=== PATIENT | male | born 1940 | race Caucasian/White ===

== ENCOUNTER → 2017-04-13 | Outpatient (CLI) | payer OTHER ==
[~2017-04-13] MED LIST: DABI150C PO; LOSA50TA6 PO; METO100T44 PO; OXYC-57 PO; PRAV80TA2 PO
--- NOTE | 2017-04-13 09:08 | DIAGNOSTIC IMAGING REPORT ---
KUB HISTORY: N20.0 [id number] COMPARISON: KUB 03/23/2016. FINDINGS: The bowel gas pattern is unremarkable. There are no dilated loops of small bowel to suggest an obstruction. No right renal calculi. Possible 5 mm stone within the upper pole the left kidney. No ureteral calculi. Calcifications in the deep pelvis likely represent phleboliths. These are not significantly changed. Multiple mastoid splenic granulomas. The renal shadows are mostly obscured by overlying bowel gas. No pneumoperitoneum or pneumatosis. IMPRESSION: The renal shadows are mostly obscured by overlying bowel gas. Possible 5 mm stone within the upper pole the left kidney Electronically signed by: Noah Huerta M.D. 04/13/2017 9:07 AM Dictated Date/Time: 04/13/2017 9:05 AM
[2017-04-13 09:47] LABS: ALT/SGPT 35 U/L (12-78); AST/SGOT 26 U/L (15-37); BLOOD UREA NITROGEN 17 mg/dl (7-18); BUN/CREATININE RATIO 11.9 (10-20); CARBON DIOXIDE 26 mmol/L (21-32); CHLORIDE 107 mmol/L (98-107); CHOLESTEROL 157 mg/dl (0-200); GLUCOSE 109 mg/dl (70-99); POTASSIUM 4.4 mmol/L (3.5-5.1); SODIUM 141 mmol/L (136-145)
[2017-04-13 09:52] LABS: ESTIMATED AVERAGE GLUCOSE 108 mg/dl; HA1C FLAG Normal (Normal)
[2017-04-13 09:57] LABS: CHOLESTEROL/HDL RATIO 2.5; HDL CHOLESTEROL 63 mg/dl; LDL CHOLESTEROL CALCULATED 76 mg/dl; TRIGLYCERIDES 91 mg/dl (0-150); VERY LOW DENSITY LIPOPROT CALC 18 mg/dl
[2017-04-13 13:21] LABS: CALCIUM 9.6 mg/dl (8.5-10.1)
--- NOTE | 2017-04-21 13:01 | CODING QUERY MEDICAL NECESSITY ---
CQSUPPORTING DIAGNOSIS NEEDED A supporting diagnosis is required for the test/procedure performed on this patient in order for us to be reimbursed by the patient's insurance. Please provide a supporting diagnosis for the following test/procedure listed below next to the test name along with your signature. *If there is no additional diagnosis for this patient that would support the following test/procedure please document that below next to the test/procedure. Test(s)/Procedure(s) that require a supporting diagnosis: DOS 04/13/17 PROSTATE SPECIFIC TEST Provider Signature: Date: Thank you Sarah Molina [employer] Once completed, please kindly fax back to [phone] For questions please call [phone]
--- NOTE | 2017-04-21 13:05 | CODING QUERY MEDICAL NECESSITY ---
CQSUPPORTING DIAGNOSIS NEEDED A supporting diagnosis is required for the test/procedure performed on this patient in order for us to be reimbursed by the patient's insurance. Please provide a supporting diagnosis for the following test/procedure listed below next to the test name along with your signature. *If there is no additional diagnosis for this patient that would support the following test/procedure please document that below next to the test/procedure. Test(s)/Procedure(s) that require a supporting diagnosis: DOS 04/13/17 GLYCATED HEMOGLOBIN TEST (PRE-DIABESTES DIAGNOSIS DOES NOT COVER) Provider Signature: Date: Thank you Sarah Molina [employer] Once completed, please kindly fax back to [phone] For questions please call [phone]
== END | disposition home or self-care (01) ==
LOC: C.LAB1850 08:02
PROVIDERS: ATTEND Urology
DX: Z00.00 Encounter for general adult medical examination without abnormal findings (principal); N20.0 Calculus of kidney; E78.5 Hyperlipidemia, unspecified; I10 Essential (primary) hypertension; I25.10 Atherosclerotic heart disease of native coronary artery without angina pectoris; R73.03 Prediabetes; N40.0 Benign prostatic hyperplasia without lower urinary tract symptoms; R73.9 Hyperglycemia, unspecified

== ENCOUNTER → 2017-11-18 | Outpatient (CLI) | payer OTHER ==
[2017-11-18 10:24] LABS: ALT/SGPT 32 U/L (12-78); AST/SGOT 25 U/L (15-37); BLOOD UREA NITROGEN 20 mg/dl (7-18); CALCIUM 9.2 mg/dl (8.5-10.1); CARBON DIOXIDE 26 mmol/L (21-32); CHOLESTEROL 125 mg/dl (0-200); CREATININE 1.23 mg/dl (0.60-1.40); GLUCOSE 105 mg/dl (70-99); POTASSIUM 4.2 mmol/L (3.5-5.1); SODIUM 139 mmol/L (136-145)
[2017-11-18 10:34] LABS: LDL CHOLESTEROL CALCULATED 58 mg/dl
[2017-11-18 10:51] LABS: HEMOGLOBIN A1C 5.3 % (4.5-5.6)
== END | disposition home or self-care (01) ==
LOC: C.LAB1850 07:50
PROVIDERS: ATTEND Internal Medicine
DX: E78.00 Pure hypercholesterolemia, unspecified (principal); R73.9 Hyperglycemia, unspecified; I48.0 Paroxysmal atrial fibrillation; R73.03 Prediabetes; N40.0 Benign prostatic hyperplasia without lower urinary tract symptoms

== ENCOUNTER → 2017-12-13 | Outpatient (CLI) | payer OTHER ==
--- NOTE | 2017-12-13 16:18 | DIAGNOSTIC IMAGING REPORT ---
KUB HISTORY: NEPHROLITHIASIS COMPARISON: KUB 04/13/2017. FINDINGS: The bowel gas pattern is unremarkable. There are no dilated loops of small bowel to suggest an obstruction. Multiple splenic calcified granulomas are again noted. Overlying bowel result in difficult evaluation of the kidneys. There appears to be a punctate stone within the interpolar region of the right kidney. There may be a few punctate stones within the lower pole the left kidney. No ureteral calculi identified. Multiple pelvic calcifications consistent with phleboliths. No bladder calculi. No pneumoperitoneum or pneumatosis. IMPRESSION: Difficult evaluation of the kidneys due to overlying bowel. Probable punctate bilateral renal calculi. No ureteral calculi. Electronically signed by: Noah Huerta M.D. 12/13/2017 4:17 PM Dictated Date/Time: 12/13/2017 4:09 PM
== END | disposition home or self-care (01) ==
LOC: C.RAD1850 16:00
PROVIDERS: ATTEND Internal Medicine
DX: N20.0 Calculus of kidney (principal)

== ENCOUNTER → 2018-05-10 | Outpatient (CLI) | payer OTHER ==
[2018-05-10 09:46] LABS: HEMOGLOBIN A1C 5.4 % (4.5-5.6)
[2018-05-10 10:07] LABS: ALT/SGPT 31 U/L (12-78); AST/SGOT 22 U/L (15-37); BLOOD UREA NITROGEN 18 mg/dl (7-18); CALCIUM 8.7 mg/dl (8.5-10.1); CARBON DIOXIDE 26 mmol/L (21-32); CHOLESTEROL 112 mg/dl (0-200); CREATININE 1.26 mg/dl (0.60-1.40); GLUCOSE 101 mg/dl (70-99); LDL CHOLESTEROL CALCULATED 44 mg/dl; POTASSIUM 4.3 mmol/L (3.5-5.1); SODIUM 140 mmol/L (136-145)
== END | disposition home or self-care (01) ==
LOC: C.LAB1850 08:10
PROVIDERS: ATTEND Internal Medicine
DX: I48.91 Unspecified atrial fibrillation (principal); E78.00 Pure hypercholesterolemia, unspecified; R73.9 Hyperglycemia, unspecified

== ENCOUNTER 2025-08-26 16:04 | Observation (INO) ==
--- NOTE | 2025-08-26 16:24 | Emergency Department Note ---
Impression & Plan Frequent falls, Generalized weakness, Acute dehydration, Acidosis, lactic, Acute prostatitis, Cholelithiasis ED Provider Note NAME: RADHA NIEVES Jr AGE: 85 SEX: M : 1940 ARRIVES VIA: Walk-In INFORMANT: Patient, family ED PROVIDER(S): Eduardo Crowell DO CHIEF COMPLAINT: falls, LUTS HPI: This is an 85-year-old male with the PMHx of hypertension, hyperlipidemia, atherosclerotic cardiovascular disease, chronic anticoagulation with apixaban, CAD s/p CABG, JEFFREY, and BPH presenting to [facility] for further evaluation of falls. Patient is accompanied by his and daughter who provide additional history. They are reporting that the patient has been weak over the past few days. Has had issues of urinary frequency as well as incontinence. I think he has intermittent urinary retention. Possible UTI. He has fallen multiple times onto his hands and knees. He has no pain. He never struck his head or loss consciousness. He reports increased weakness and fatigue. They deny fever or chills. No cough or congestion. Denies chest pain or palpitations. No shortness of breath. They deny abdominal pain, nausea and vomiting. No urinary complaints. No recent changes in bowel movements. Patient denies recent changes in medications or OTC supplements. Patient offers no other complaints, today. ADDITIONAL HISTORY OBTAINED: Per HPI Chronic Medical/Social Conditions Affecting Care: Per HPI PAST MEDICAL HISTORY: See Below PAST SURGICAL HISTORY: See Below FAMILY HISTORY: See Below SOCIAL HISTORY: See Below HOME MEDICATIONS: See Below ALLERGIES: See Below VITALS: See Below PHYSICAL EXAMINATION: GENERAL: Sitting up in bed, alert, well appearing, well nourished, no distress, non-toxic EYE EXAM: normal conjunctiva. PERRL and EOM's grossly intact. OROPHARYNX: no exudate, no erythema, lips, buccal mucosa, and tongue normal and mucous membranes are moist NECK: supple, no nuchal rigidity, no adenopathy, non-tender LUNGS: Clear to auscultation. Normal chest wall mechanics HEART: no murmurs, regular rate, regular rhythm ABDOMEN: abdomen soft, non-tender, no masses, no rebound or guarding. BACK: Back is symmetrical on inspection and there is no deformity, no midline tenderness, no CVA tenderness. SKIN: no rashes and no bruising UPPER EXTREMITIES: upper extremities are grossly normal. LOWER EXTREMITIES: No pitting edema. NEURO EXAM: Normal sensorium, GCS 15, normal speech, no gross weakness of arms, no gross weakness of legs. MEDICAL DECISION MAKING: Differential diagnoses includes but not limited to ICH, skull fracture, appendicitis, bowel obstruction, diverticulitis, malignancy, nephrolithiasis, gastroenteritis, ACS, PNA, pancreatitis, hepatobiliary disease, prostatitis, UTI, electrolyte derangements, dehydration, functional decline In summary, this is an 85 year old male who presented with falls. Differential as above. Nursing notes and pertinent past medical records reviewed. Vital signs reviewed and the patient is afebrile and HDS. History and presentation revealed frequent falls on the hands and knees over the last few days in the setting of weakness and urinary complaints. Patient never struck his head but he is anticoagulated raising risk for intracranial hemorrhage. Physical examination revealed no evidence of trauma. As a result of my initial evaluation, there is never any evidence of trauma on physical examination. He never struck his head. He is anticoagulated and would obtain a CT head to ensure no intracranial hemorrhage. Patient's symptoms are mostly urinary. Suspect he could have a complicated UTI leading to weakness and increased falls. Safety will be the biggest concern for this patient as he is anticoagulated. IV access was established and the patient was placed on CCRM. Therapeutics ordered include IVFR. The patient is concerned about possible kidney stone. He states this feels similar. He has never had pain with kidney stones in the past. Will obtain a CT dry scan for further evaluation. Diagnostics interpreted by me include EKG and cardiac monitoring as listed below: -Cardiac Monitoring: An order was placed for continuous cardiac monitoring. The monitor shows a rate of 60-90s with regular rhythm. -ECG: Ventricular paced rhythm at [address] segment changes to suggest STEMI. Intervals are within normal limits otherwise. Patient completed laboratory studies and imaging. I-STAT chemistries independently interpreted by me reveal mild hyponatremia but otherwise unremarkable. CXR independently interpreted by me reveals no evidence of focal consolidation to suggest pna. No large pneumothorax or pleural effusion. No obvious displaced rib fracture. Sternotomy wires in place with PPM. CTH independently interpreted by me reveals no evidence of ICH. No significant hydrocephalus. No major skull fractures. CTH does not demonstrate findings to suggest an etiology of the patient's symptoms or presentation, today. Results independently interpreted by me are minimal leukocytosis and anemia. I minimal hyponatremia could be related to hyperglycemia. Increased BUN to creatinine ratio likely from mild dehydration. LFTs are normal. Urinalysis shows leukocyte esterase and pyuria. Do feel this is abnormal for a male patient. There is potential for complicated UTI but feel this could be more related to prostatitis. He has prostatomegaly on CT scan but otherwise no acute intra- abdominal or pelvic pathology. Some cholelithiasis but do not believe he is symptomatic at this time. Will continue IV fluid resuscitation. Patient was also given a dose of IV ciprofloxacin. I do feel given safety concerns as well as possibility of complicated UTI versus prostatitis at the patient should be admitted for observation. Ultimately, the decision was made to admit the patient for ambulatory dysfunction and weakness in the setting of complicated UTI vs prostatitis. I discussed the case with the hospitalist service via telephone/TigerText and they are agreeable to admit the patient to their services. Based on the above, including the patient's age, coexisting illnesses, labs, imaging, and exam findings the decision to treat as an inpatient. I discussed the patient with the hospitalist team who recommended admission to their services. They received the medications, treatments, interventions indicated above and their condition remained stable. I discussed my findings with the patient and their family and they understand and agree with the treatment plan. All patient / family questions were answered to their satisfaction. Consults/Care Managements Discussions: Per MDM ER treatment provided: See above Procedures:none Critical Care: None The chart was completed utilizing [employer] Speech voice recognition software. Grammatical errors, random word insertions, pronoun errors, and incomplete sentences are an occasional consequence of this system due to software limitations, ambient noise, and hardware issues. Any formal questions or concerns about the content, text, or information contained within the body of this dictation should be directly addressed to the physician for clarification. Past Med/Surg History Problem List (Updated 08/28/25 @ 12:40 by Eduardo Crowell DO) Cholelithiasis (Acute) Acute prostatitis (Acute) Acidosis, lactic (Acute) Acute dehydration (Acute) Generalized weakness (Acute) Frequent falls (Acute) Prostatitis Falls Fecal incontinence Chronic diarrhea BPH with obstruction/lower urinary tract symptoms History of use of hearing aid in both ears Oticon More 2R disp 05/2023 Bilateral tinnitus Hx TIA/stroke w/o resid Presence of cardiac pacemaker Vitamin D deficiency Seizure-like activity Word finding difficulty Sensorineural hearing loss (SNHL) of both ears Pulmonary nodule (Acute 10/14/15) Allergic rhinitis due to dust (Acute) Arteriosclerotic cardiovascular disease (Acute) Obstructive sleep apnea (Acute) On anticoagulant therapy (Acute) Eliquis Pre-diabetes (Acute) Right bundle branch block (Acute) SNHL (sensorineural hearing loss) Ureterolithiasis (Acute) Obstructive uropathy (Acute) HTN (hypertension) (Chronic) Medical History (Updated 08/28/25 @ 12:40 by Eduardo Crowell DO) Pre-diabetes denies History of colon polyps Hypothyroid History of kidney stones Pulmonary nodule denies HTN (hypertension) Word finding problem hx multiple episodes, most recent 2023 - eval at [facility]. Never had stroke or mini stroke per pt. History of cardioversion multiple prior to pacemaker placement Hyperlipidemia Cardiac pacemaker Dual Chamber pacemaker, VVIR mode d/t chronic Afib. Last check May 2025 - Dr. Clancy office. BPH (benign prostatic hyperplasia) denies Atrial fibrillation (2014) Continuous Afib since 2014 Sick sinus syndrome (04/12/14) "not familiar" Surgical History History of urologic surgery hx kidney stone History of colonoscopy History of left cataract surgery History of right cataract surgery History of cardiac cath (2002) failed stress test, found 5 blockages...CABG. Anais. History of permanent cardiac pacemaker placement original placement approx 2012, replaced in 2023 - [employer]. Hx of CABG (2002) Anais. Family History Mother Congenital heart disease Coronary heart disease Hypertension Lung cancer Breast cancer Father Coronary heart disease Kidney stones Hypertension Lung cancer Pure hypercholesterolemia Myocardial infarction Aunt Breast cancer Denies family history of Colon cancer Ovarian cancer Prostate cancer Social History Smoking Status: Never smoker Second Hand Exposure: No; Do You Dip or Chew Tobacco: No; Hx Alcohol Use: Yes Alcohol type: wine Alcohol Intake Frequency Comment: 4-5 times a week Hx Substance Use: No Preferred Language: Macedonian Communication Ability: Effective Visual Impairment: No Limitations Hearing Ability: Normal Craft Manager Required: No Beliefs That Will Affect Care: None marital status: Current Living Situation: Spouse current occupational status: retired How many Children do You have: 3 Feels Safe at Home: Yes Childhood Exposure to Second-Hand Smoke: Yes Diet Comment: low fat diet Dental Care, Regularly: Yes Physical Activity Frequency: 3-4 Times per Week Seatbelt Use: always Sunscreen Use: Yes Assistive Devices: Cane and Walker Allergies Allergies Allergy/AdvReac Type Severity Reaction Status Date / Time KARLA Inhibitors AdvReac Unknown cough Verified 08/24/25 13:22 Home Meds Home Medications Medication Instructions Recorded Confirmed cholecalciferol (vitamin D3) 25 25 mcg PO DAILY 03/30/22 08/26/25 mcg (1,000 unit) capsule aspirin 81 mg capsule 81 mg PO Q2D 09/14/23 08/26/25 levothyroxine 25 mcg tablet 25 mcg PO QPM 07/10/25 08/26/25 polyethylene glycol 3350 17 17 g PO DAILY 07/19/25 08/26/25 gram/dose oral powder (Miralax) Previous Rx's Medication Instructions Recorded pravastatin 80 mg tablet 80 mg PO QPM #90 tabs 10/02/24 metoprolol succinate 200 mg 200 mg PO QPM #90 tabs 12/27/24 tablet,extended release 24 hr apixaban 5 mg tablet 5 mg PO BID #180 tabs 01/05/25 ondansetron HCl 4 mg tablet 4 mg PO Q6H PRN nausea and 08/24/25 vomiting #30 tabs ciprofloxacin HCl 500 mg tablet 500 mg PO BID 26 days #52 tabs 08/28/25 (Cipro) tamsulosin 0.4 mg capsule 0.4 mg PO HS #30 caps 08/28/25 Results & Data (ED) Vital Signs Vital Signs - 24 hr 08/26/25 16:07 08/26/25 16:18 08/26/25 16:30 Temperature 36.8 C Temperature Source Temporal Artery Scan Pulse Rate 91 H 77 Pulse Rate [Apical] 61 Pulse Rhythm Pulse Rhythm [Apical] Pulse Strength [Apical] Respiratory Rate 20 23 Respiratory Effort / Characteristics Non-Labored Spontaneous Respiratory Depth Normal Respiratory Pattern Regular Blood Pressure 140/82 Blood Pressure [Left Arm] 132/65 Blood Pressure Mean 101 Blood Pressure Mean [Left Arm] 87 Blood Pressure Position [Left Arm] Semi-fowlers Pulse Oximetry 95 97 Oxygen Delivery Method Room Air Room Air Sepsis Recent Fever Within 48 Hours No Sepsis New/Unexplained Change in Mental Status N/A Sepsis Action Taken by Nursing No Action Required 08/26/25 17:00 08/26/25 17:00 08/26/25 18:00 Temperature Temperature Source Pulse Rate 61 Pulse Rate [Apical] 60 60 Pulse Rhythm Regular Pulse Rhythm [Apical] Pulse Strength [Apical] Respiratory Rate 26 H 24 27 H Respiratory Effort / Characteristics Non-Labored Spontaneous Non-Labored Spontaneous Respiratory Depth Normal Normal Respiratory Pattern Regular Regular Blood Pressure Blood Pressure [Left Arm] 128/67 126/68 Blood Pressure Mean Blood Pressure Mean [Left Arm] 87 87 Blood Pressure Position [Left Arm] Semi-fowlers Semi-fowlers Pulse Oximetry 95 95 94 Oxygen Delivery Method Room Air Room Air Room Air Sepsis Recent Fever Within 48 Hours Sepsis New/Unexplained Change in Mental Status Sepsis Action Taken by Nursing 08/26/25 19:00 Temperature Temperature Source Pulse Rate Pulse Rate [Apical] 60 Pulse Rhythm Pulse Rhythm [Apical] Regular Pulse Strength [Apical] Normal Respiratory Rate 20 Respiratory Effort / Characteristics Non-Labored Respiratory Depth Normal Respiratory Pattern Regular Blood Pressure Blood Pressure [Left Arm] 125/71 Blood Pressure Mean Blood Pressure Mean [Left Arm] 89 Blood Pressure Position [Left Arm] Lying Pulse Oximetry 95 Oxygen Delivery Method Room Air Sepsis Recent Fever Within 48 Hours Sepsis New/Unexplained Change in Mental Status Sepsis Action Taken by Nursing Laboratory Data 08/28/25 07:34 08/28/25 07:34 Lab Results 08/26/25 08/26/25 Range/Units 16:40 16:48 WBC 12.35 H (4.8-10.8) K/ul RBC 4.25 L (4.70-6.10) M/uL Hgb 14.1 (14.0-18.0) g/dl POC Hgb 13.6 L (14.0-18.0) g/dl Hct 39.9 L (42.0-52.0) % POC Hct 40 L (42-52) % MCV 93.9 (80.0-100.0) fL MCH 33.2 (25.0-34.0) pg MCHC 35.3 (32.0-36.0) g/dL RDW Std Deviation 53.0 H (36.4-46.3) fL RDW Coeff of Ricardo 15.2 H (11.5-14.5) % Plt Count 133 (130-400) K/uL MPV 10.9 (9.4-12.4) fL Immature Gran % (Auto) 0.4 % Neut % (Auto) 87.1 % Lymph % (Auto) 5.1 % Tompkins % (Auto) 7.1 % Eos % (Auto) 0.1 % Baso % (Auto) 0.2 % Neut # (Auto) 10.76 H (1.40-6.50) K/uL Lymph # (Auto) 0.63 L (1.20-3.40) K/uL Tompkins # (Auto) 0.88 H (0.11-0.59) K/uL Eos # (Auto) 0.01 (0.00-0.50) K/uL Baso # (Auto) 0.02 (0.00-0.20) K/uL Immature Gran # (Auto) 0.05 (0.01-0.20) K/uL PT 12.2 H (9.0-12.0) Seconds INR 1.2 H (0.9-1.1) APTT 31 (21-31) Seconds PTT Ratio 1.1 POC Sodium 133 L (135-144) mmol/L Sodium 133 L (136-145) mmol/L POC Potassium 4.1 (3.3-5.0) mmol/L Potassium 4.2 (3.5-5.1) mmol/L POC Chloride 99 L (101-112) mmol/L Chloride 99 (98-107) mmol/L Carbon Dioxide 22 (21-32) mmol/L POC Total CO2 21 L (24-31) mmol/L Anion Gap 12 H (3-11) POC Anion Gap 18.0 (16-25) mmol/L POC BUN 28 H (7-18) mg/dl BUN 29 H (6-23) mg/dl Creatinine 1.18 (0.6-1.4) mg/dl POC Creatinine 1.2 (0.6-1.3) mg/dl Est Cr Clr Drug Dosing 42.8 ml/min eGFR 60.47 BUN/Creatinine Ratio 24.6 H (10-20) Glucose 116 H (70-99(Fasting)) mg/dl POC Glucose (other) 115 H (70-99) mg/dl Lactate 3.0 H* (0.4-2.0) mmol/L Calcium 9.6 (8.6-10.3) mg/dl POC Ioniz Calcium Randa 1.13 (1.12-1.32) mmol/l Total Bilirubin 2.2 H (0.2-1.0) mg/dl AST 30 (13-39) U/L ALT 18 (7-52) U/L Alkaline Phosphatase 60 (34-104) U/L Troponin I High Sens 14.1 (0-20) pg/ml Total Protein 7.2 (6.0-8.3) gm/dl Albumin 4.3 (3.4-5.0) gm/dl Globulin 2.9 (2.5-4.0) gm/dl Albumin/Globulin Ratio 1.5 (0.9-2) Lipase 23 (11-82) U/L Procalcitonin 0.28 (0-0.5) ng/ml Administered Medications Discontinued Medications Apixaban (Apixaban 5 Mg Tablet) 5 mg PO BID SHARRON Stop: 09/25/25 21:38 Last Admin: 08/28/25 08:37 Dose: 5 mg Documented By: Admin: 08/27/25 21:47 Dose: 5 mg Documented By: meera Admin: 08/27/25 08:11 Dose: 5 mg Documented By: Admin: 08/26/25 23:39 Dose: 5 mg Documented By: EKF Aspirin (Aspirin 81 Mg Ectab) 81 mg PO Q2D@0900 SHARRON Stop: 09/26/25 08:59 Last Admin: 08/27/25 08:10 Dose: 81 mg Documented By: TALISHA Parenteral Electrolytes (Plasma-Lyte A Ph 7.4) 1,000 mls @ 999 mls/hr IV .Q1H1M ONE Stop: 08/26/25 17:21 Last Infusion: 08/26/25 17:36 Dose: Infused Documented By: Admin: 08/26/25 16:41 Dose: 999 mls/hr Documented By: FG Parenteral Electrolytes (Plasma-Lyte A Ph 7.4) 500 mls @ 999 mls/hr IV .Q31M ONE Stop: 08/26/25 19:02 Last Infusion: 08/26/25 20:46 Dose: Infused Documented By: Admin: 08/26/25 18:49 Dose: 999 mls/hr Documented By: FG Ciprofloxacin (Cipro / D5w) 400 mg in 200 mls @ 100 mls/hr IV NOW STA; Protocol Stop: 08/26/25 21:19 Last Infusion: 08/26/25 23:40 Dose: Infused Documented By: Admin: 08/26/25 19:47 Dose: 100 mls/hr Documented By: ricardo Ciprofloxacin (Cipro / D5w) 400 mg in 200 mls @ 100 mls/hr IV Q12H SHARRON; Protocol Stop: 09/06/25 08:59 Last Infusion: 08/28/25 10:40 Dose: Infused Documented By: Admin: 08/28/25 08:37 Dose: 100 mls/hr Documented By: Infusion: 08/28/25 00:46 Dose: Infused Documented By: ksy Admin: 08/27/25 21:50 Dose: 100 mls/hr Documented By: [email or web address] Infusion: 08/27/25 12:23 Dose: Infused Documented By: TROscar Admin: 08/27/25 09:53 Dose: 100 mls/hr Documented By: TALISHA Lactated Ringer's (Lr) 1,000 mls @ 100 mls/hr IV .Q10H SHARRON Stop: 08/27/25 17:38 Last Infusion: 08/27/25 17:34 Dose: Infused Documented By: TROscar Infusion: 08/27/25 12:23 Dose: 100 mls/hr Documented By: TROscar Infusion: 08/27/25 09:53 Dose: 0 mls/hr Documented By: TROscar Admin: 08/27/25 08:10 Dose: 100 mls/hr Documented By: Infusion: 08/27/25 08:10 Dose: Infused Documented By: Admin: 08/26/25 22:11 Dose: 100 mls/hr Documented By: EKF Levothyroxine Sodium (Levothyroxine Sodium 25 Mcg Tablet) 25 mcg PO QPM SHARRON Stop: 09/25/25 21:38 Last Admin: 08/27/25 21:48 Dose: 25 mcg Documented By: ksy Admin: 08/26/25 23:39 Dose: 25 mcg Documented By: EKF Metoprolol Succinate (Metoprolol Succ 50mg Ext Rel Tab) 200 mg PO QPM SHARRON Stop: 09/25/25 21:38 Last Admin: 08/27/25 21:49 Dose: 200 mg Documented By: ksy Admin: 08/26/25 23:39 Dose: 200 mg Documented By: EKF Polyethylene Glycol (Polyethylene (Miralax) 17 Gm Pack) 17 gm PO DAILY SHARRON Stop: 09/26/25 08:59 Last Admin: 08/28/25 08:43 Dose: Not Given Documented By: Admin: 08/27/25 08:17 Dose: 17 gm Documented By: TRB Pravastatin Sodium (Pravastatin Sod 40 Mg Tab) 80 mg PO QPM SHARRON Stop: 09/25/25 21:38 Last Admin: 08/27/25 21:50 Dose: 80 mg Documented By: [email or web address] Admin: 08/26/25 23:39 Dose: 80 mg Documented By: EKF Tamsulosin HCl (Tamsulosin Hcl 0.4 Mg Cap) 0.4 mg PO HS SHARRON Stop: 09/25/25 21:38 Last Admin: 08/27/25 21:50 Dose: 0.4 mg Documented By: [email or web address] Admin: 08/26/25 23:39 Dose: 0.4 mg Documented By: EKF Imaging Data Radiologist's Impression: Chest X-Ray 08/26/25 16:21 Chest radiograph, one view History: Trauma Comparison: 07/23/2023 Findings: Single AP view of the chest performed. No focal consolidation or pleural effusion. No pneumothorax. CABG changes. Left chest wall AICD. The cardiomediastinal silhouette is within normal limits. Normal pulmonary vascularity. No evidence for lymphadenopathy. No visualized bony or soft tissue abnormality. Impression: Normal chest radiograph Electronically signed by Anthony Carreon 08-26-2025 6:[address] 08/26/25 16:21 CT head without contrast History: Trauma Comparison: None Technique: Using multidetector thin collimation helical acquisition technique, axial, coronal and sagittal CT images from the skull base to the vertex were obtained without intravenous contrast. Dose reduction techniques were achieved by using automatic exposure control and/or adjustment of mA and/or kV according to patient size and/or use of iterative reconstruction technique. Findings: No intracranial hemorrhage, mass-effect, or midline shift. The ventricles are proportionate to the cerebral sulci. The arriaza to white matter differentiation of the cerebral hemispheres is preserved. The basal cisterns are patent. There is moderate cerebral atrophy. Moderate, patchy low-attenuation changes in the white matter, most suggestive of sequelae of chronic small vessel ischemic disease. 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 Heavy cerebral vascular calcification. The visualized paranasal sinuses are clear. Mastoid air cells are clear. Impression: No acute intracranial pathology. Electronically signed by Anthony Carreon 08-26-2025 6:12 PM Abdomen/Pelvis CT 08/26/25 16:54 EXAMINATION: CT of the abdomen and pelvis performed without contrast TECHNIQUE: Helical CT images from the lung bases through the symphysis pubis were obtained without contrast. Coronal and sagittal reformatted images were generated at a workstation for further assessment. Dose reduction techniques were achieved by using automatic exposure control and/or adjustment of mA and/or kV according to patient size and/or use of iterative reconstruction technique. COMPARISON: 09/11/2015 HISTORY: Abdominal pain FINDINGS: Lower chest: No consolidation. No pleural effusion or pneumothorax. Stable 8 mm nodule in the left lower lobe since September 11, 2015, favored benign. Liver: No suspicious liver lesions. Calcific annulus. Gallbladder: Small layering calcified gallstones. No evidence of acute cholecystitis. Spleen: Normal size. Calcified granulomas. Pancreas: No suspicious pancreatic lesions. The pancreatic duct is not dilated. Adrenal glands: No adrenal nodules. Kidneys: No hydronephrosis or obstructing renal stones. There is a few punctate nonobstructing stones at the inferior right kidney, as well as a tiny nonobstructing inferior left renal stone. Bladder / Pelvic organs: Enlarged prostate gland measuring 5.4 cm. The urinary bladder is mildly distended.. Bowel: No bowel obstruction. No abnormal bowel wall thickening. The appendix is unremarkable. Small sliding hiatal hernia. Sigmoid diverticulosis without diverticulitis. Lymph nodes: No retroperitoneal, mesenteric, or pelvic lymphadenopathy. Peritoneum / Retroperitoneum: No free fluid or air within the abdomen. Vessels: No infrarenal aortic aneurysm. Bones and soft tissues: No suspicious lesion in the bones. Fat-containing inguinal hernias bilaterally. IMPRESSION: No acute finding. No obstructing ureteral stone. Prostatomegaly. Cholelithiasis. Electronically signed by Anthony Carreon 08-26-2025 7:16 PM Discharge Plan Visit Data Chief Complaint: Fall Stated Complaint: FELL 3 TIMES TODAY, DID NOT HIT HEAD, ON ELIQUIS ED Provider: Eduardo Crowell Discharge Problem: Frequent falls, Generalized weakness, Acute dehydration, Acidosis, lactic, Acute prostatitis, Cholelithiasis Patient Disposition: Admitted As Inpatient Condition: Fair Discharge Instructions Interventions: ED Discharge Assessment Last Done: 08/26/25 21:14
[2025-08-26] MEDS: PLASMA-LYTE A 1,000 ML IV ONE (16:41)
[2025-08-26 17:01] LABS: Hematocrit (blood only) 39.9 % (42.0-52.0); Hemoglobin 14.1 g/dl (14.0-18.0); Immature Granulocytes # (auto) 0.05 K/uL (0.01-0.20); Immature Granulocytes % (auto) 0.4 %; Mean Corpuscular Hemoglobin 33.2 pg (25.0-34.0); Mean Corpuscular Volume 93.9 fL (80.0-100.0); Platelet Count 133 K/uL (130-400); RDW Standard Deviation 53.0 fL (36.4-46.3); Red Blood Count 4.25 M/uL (4.70-6.10); White Blood Count 12.35 K/ul (4.8-10.8)
[2025-08-26 17:20] LABS: Alanine Aminotransferase 18.0 U/L (7-52); Albumin Globulin Ratio 1.5 (0.9-2); Albumin Level 4.3 gm/dl (3.4-5.0); Alkaline Phosphatase 60.0 U/L (34-104); Anion Gap 12.0 (3-11); Bilirubin,Total 2.2 mg/dl (0.2-1.0); Blood Urea Nitrogen 29.0 mg/dl (6-23); Calcium 9.6 mg/dl (8.6-10.3); Carbon Dioxide 22.0 mmol/L (21-32); Chloride 99.0 mmol/L (98-107); Creatinine Clr Calc Pharmacy 42.8 ml/min; Globulin 2.9 gm/dl (2.5-4.0); Glucose 116.0 mg/dl (70-99(Fasting)); Lipase 23.0 U/L (11-82); Potassium 4.2 mmol/L (3.5-5.1); Sodium 133.0 mmol/L (136-145); Total Protein 7.2 gm/dl (6.0-8.3)
[2025-08-26 17:31] LABS: INR 1.2 (0.9-1.1); Partial Thromboplastin Time 31 Seconds (21-31); Prothrombin Time 12.2 Seconds (9.0-12.0)
--- NOTE | 2025-08-26 18:05 | XRay Report ---
Chest radiograph, one view History: Trauma Comparison: 07/23/2023 Findings: Single AP view of the chest performed. No focal consolidation or pleural effusion. No pneumothorax. CABG changes. Left chest wall AICD. The cardiomediastinal silhouette is within normal limits. Normal pulmonary vascularity. No evidence for lymphadenopathy. No visualized bony or soft tissue abnormality. Impression: Normal chest radiograph Electronically signed by Anthony Carreon 08-26-2025 6:04 PM
--- NOTE | 2025-08-26 18:13 | CT Scan Report ---
CT head without contrast History: Trauma Comparison: None Technique: Using multidetector thin collimation helical acquisition technique, axial, coronal and sagittal CT images from the skull base to the vertex were obtained without intravenous contrast. Dose reduction techniques were achieved by using automatic exposure control and/or adjustment of mA and/or kV according to patient size and/or use of iterative reconstruction technique. Findings: No intracranial hemorrhage, mass-effect, or midline shift. The ventricles are proportionate to the cerebral sulci. The arriaza to white matter differentiation of the cerebral hemispheres is preserved. The basal cisterns are patent. There is moderate cerebral atrophy. Moderate, patchy low-attenuation changes in the white matter, most suggestive of sequelae of chronic small vessel ischemic disease. 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 Heavy cerebral vascular calcification. The visualized paranasal sinuses are clear. Mastoid air cells are clear. Impression: No acute intracranial pathology. Electronically signed by Anthony Carreon 08-26-2025 6:12 PM
[2025-08-26] MEDS: PLASMA-LYTE A 500 ML IV ONE (18:49)
[2025-08-26 19:15] LABS: Appearance Urine Clear (Clear); Bacteria Urine Automated None Seen (None Seen); Cast Urine Automated 0-2 /lpf (0-2); Epithelial Cell Urine Auto 0-2 /hpf (0-2); Glucose Urine UA Negative (Negative); WBC Urine Automated 21-50 /hpf (0-5)
--- NOTE | 2025-08-26 19:17 | CT Scan Report ---
EXAMINATION: CT of the abdomen and pelvis performed without contrast TECHNIQUE: Helical CT images from the lung bases through the symphysis pubis were obtained without contrast. Coronal and sagittal reformatted images were generated at a workstation for further assessment. Dose reduction techniques were achieved by using automatic exposure control and/or adjustment of mA and/or kV according to patient size and/or use of iterative reconstruction technique. COMPARISON: 09/11/2015 HISTORY: Abdominal pain FINDINGS: Lower chest: No consolidation. No pleural effusion or pneumothorax. Stable 8 mm nodule in the left lower lobe since September 11, 2015, favored benign. Liver: No suspicious liver lesions. Calcific annulus. Gallbladder: Small layering calcified gallstones. No evidence of acute cholecystitis. Spleen: Normal size. Calcified granulomas. Pancreas: No suspicious pancreatic lesions. The pancreatic duct is not dilated. Adrenal glands: No adrenal nodules. Kidneys: No hydronephrosis or obstructing renal stones. There is a few punctate nonobstructing stones at the inferior right kidney, as well as a tiny nonobstructing inferior left renal stone. Bladder / Pelvic organs: Enlarged prostate gland measuring 5.4 cm. The urinary bladder is mildly distended.. Bowel: No bowel obstruction. No abnormal bowel wall thickening. The appendix is unremarkable. Small sliding hiatal hernia. Sigmoid diverticulosis without diverticulitis. Lymph nodes: No retroperitoneal, mesenteric, or pelvic lymphadenopathy. Peritoneum / Retroperitoneum: No free fluid or air within the abdomen. Vessels: No infrarenal aortic aneurysm. Bones and soft tissues: No suspicious lesion in the bones. Fat-containing inguinal hernias bilaterally. IMPRESSION: No acute finding. No obstructing ureteral stone. Prostatomegaly. Cholelithiasis. Electronically signed by Anthony Carreon 08-26-2025 7:16 PM
--- NOTE | 2025-08-26 19:41 | History & Physical Report ---
Date of Service August 26, 2025 Assessment & Plan (1) Falls: (2) Prostatitis: (3) Atrial fibrillation: (4) BPH with obstruction/lower urinary tract symptoms: Plan 85yo male with history of HTN, HLP, AF on Eliquis anticoagulation presenting with increased frequency of falls at home. Patient also with 4-5 days of urinary symptoms - increased frequency, difficulty starting his urinary stream. #Increased frequency of falls - patient denies focal weakness, dizziness, syncope. No LOC, Head trauma or injuries. Possibly secondary to underlying infection -Observation to medical -Fall precautions -PT/OT evaluations #Possible prostatitis - patient reports urinary complaints. UA with blood, RBCs, WBCs and LE. No bacteria. CT with enlarged prostate. -Urine culture -Continue Cipro 400mg IV BID -Bladder scan with straight cath as needed -Will initiate Flomax 0.4mg po qAM -Patient should keep followup appointment with Urology #Atrial fibrillation - Paced rhythm. Patient on anticoagulation with Eliquis -Continue Metoprolol 200mg po qPM -Continue Eliquis 5mg po BID #Hyperlipidemia - chronic, stable -Continue Pravastatin 80mg po qPM LR at 100mL/hr x 2L Ppx - Eliquis Code - Full History of Present Illness Chief Complaint: frequent falls Primary Care Provider: Mauricio Lux MD Spenser Barnhart is a pleasant 85yo male with history of CAD s/p CABG, HTN, HLP and Atrial Fibrillation on Eliquis anticoagulation presenting to [facility] ER with his and daughter with complaint of increased frequency of falls. Patient fell three times today and fell once two days ago as well. This is fairly new, prior to several days ago he has not fallen. Patient reports that he simply loses his balance. Today around 14:30 he was in his bedroom making the bed and stumbled causing him to fall. He has never hit his head or injured his neck. No LOC. No other injuries reported. Also with increased generalized weakness. He reports over the last 4-5 days he has had "blocked pipes" - with difficulty passing urine. Also with increased urinary frequency. No report of chest pain, palpitations, cough, SOB, nausea, vomiting or diarrhea. No additional complaints at this time. In the ER patient is afebrile, HD stable, NAD ER Course: Cipro Allergies Allergy/AdvReac Type Severity Reaction Status Date / Time KARLA Inhibitors AdvReac Unknown cough Verified 08/24/25 13:22 Home Medications Medication Instructions Recorded Confirmed Type cholecalciferol (vitamin D3) 25 25 mcg PO DAILY 03/30/22 08/26/25 History mcg (1,000 unit) capsule aspirin 81 mg capsule 81 mg PO Q2D 09/14/23 08/26/25 History pravastatin 80 mg tablet 80 mg PO QPM #90 tabs 10/02/24 08/26/25 Rx metoprolol succinate 200 mg 200 mg PO QPM #90 tabs 12/27/24 08/26/25 Rx tablet,extended release 24 hr apixaban 5 mg tablet 5 mg PO BID #180 tabs 01/05/25 08/26/25 Rx levothyroxine 25 mcg tablet 25 mcg PO QPM 07/10/25 08/26/25 History polyethylene glycol 3350 17 17 g PO DAILY 07/19/25 08/26/25 History gram/dose oral powder (Miralax) ondansetron HCl 4 mg tablet 4 mg PO Q6H PRN nausea and 08/24/25 08/26/25 Rx vomiting #30 tabs Past Med/Surg History Problem List (Updated 08/27/25 @ 01:25 by Lise Camacho DO) Prostatitis Falls Fecal incontinence Chronic diarrhea BPH with obstruction/lower urinary tract symptoms History of use of hearing aid in both ears Oticon More 2R disp 05/2023 Bilateral tinnitus Hx TIA/stroke w/o resid Presence of cardiac pacemaker Vitamin D deficiency Seizure-like activity Word finding difficulty Sensorineural hearing loss (SNHL) of both ears Pulmonary nodule (Acute 10/14/15) Allergic rhinitis due to dust (Acute) Arteriosclerotic cardiovascular disease (Acute) Obstructive sleep apnea (Acute) On anticoagulant therapy (Acute) Eliquis Pre-diabetes (Acute) Right bundle branch block (Acute) SNHL (sensorineural hearing loss) Ureterolithiasis (Acute) Obstructive uropathy (Acute) HTN (hypertension) (Chronic) Medical History (Updated 08/27/25 @ 01:25 by Lise Camacho DO) Pre-diabetes denies History of colon polyps Hypothyroid History of kidney stones Pulmonary nodule denies HTN (hypertension) Word finding problem hx multiple episodes, most recent 2023 - eval at [facility]. Never had stroke or mini stroke per pt. History of cardioversion multiple prior to pacemaker placement Hyperlipidemia Cardiac pacemaker Dual Chamber pacemaker, VVIR mode d/t chronic Afib. Last check May 2025 - Dr. Clancy office. BPH (benign prostatic hyperplasia) denies Atrial fibrillation (2014) Continuous Afib since 2014 Sick sinus syndrome (04/12/14) "not familiar" Surgical History History of urologic surgery hx kidney stone History of colonoscopy History of left cataract surgery History of right cataract surgery History of cardiac cath (2002) failed stress test, found 5 blockages...CABG. Anais. History of permanent cardiac pacemaker placement original placement approx 2012, replaced in 2023 - [employer]. Hx of CABG (2002) [place]. Family History Mother Congenital heart disease Coronary heart disease Hypertension Lung cancer Breast cancer Father Coronary heart disease Kidney stones Hypertension Lung cancer Pure hypercholesterolemia Myocardial infarction Aunt Breast cancer Denies family history of Colon cancer Ovarian cancer Prostate cancer Social History Smoking Status: Never smoker Second Hand Exposure: No; Do You Dip or Chew Tobacco: No; Hx Alcohol Use: Yes Alcohol type: wine Alcohol Intake Frequency Comment: 4-5 times a week Hx Substance Use: No Preferred Language: Belizean Communication Ability: Effective Visual Impairment: No Limitations Hearing Ability: Normal Cook Barbecue Required: No Beliefs That Will Affect Care: None marital status: Current Living Situation: Spouse current occupational status: retired How many Children do You have: 3 Other Information That Helps Us Care for You: No Feels Safe at Home: Yes Safety Concerns: Feels Safe At This Time Childhood Exposure to Second-Hand Smoke: Yes Diet Comment: low fat diet Dental Care, Regularly: Yes Physical Activity Frequency: 3-4 Times per Week Seatbelt Use: always Sunscreen Use: Yes Assistive Devices: Hearing Aid - Bilateral Review of Systems Review of Systems: All systems reviewed & are unremarkable except as noted in HPI & below Physical Exam Physical Exam: General: patient resting comfortably, NAD, non-toxic in appearance, AA&O x 4 Skin: warm, dry, intact, no rashes or lesions HEENT: NC/AT, PERRL, EOMI, anicteric sclera, conjunctiva without injection, external ear normal to inspection and nontender, nares patent, moist mucus membranes, dentition intact, no oropharyngeal lesions, neck supple, trachea midline, no LAD, no thyromegaly, no JVD Heart: +S1/S2, regular, no m/r/g Lungs: equal air entry bilaterally, no rales/rhonchi/wheezes Abd: +BS, soft, NT/ND, no masses/organomegaly/ascites Ext: warm, 2+ pulses in UE/LE bilaterally, no clubbing/cyanosis or edema Neuro: nonfocal, patient AA&O x 4, speech intact, no facial droop, moving all extremities on command with equal strength 5/5 Results & Data Results & Data Vital Signs (Past 12 Hours) Vital Signs Temp Pulse Pulse Resp BP BP Pulse Ox 08/26/25 19:00 60 20 125/71 95 08/26/25 18:00 60 27 H 126/68 94 08/26/25 17:00 61 24 95 08/26/25 17:00 60 26 H 128/67 95 08/26/25 16:30 61 23 132/65 97 08/26/25 16:18 77 08/26/25 16:07 36.8 C 91 H 20 140/82 95 O2 Del Method 08/26/25 19:00 Room Air 08/26/25 18:00 Room Air 08/26/25 17:00 Room Air 08/26/25 17:00 Room Air 08/26/25 16:30 Room Air 08/26/25 16:18 08/26/25 16:07 Room Air Laboratory Results Laboratory Results WBC 12.35 K/ul (4.8-10.8) H 08/26/25 16:40 RBC 4.25 M/uL (4.70-6.10) L 08/26/25 16:40 Hgb 14.1 g/dl (14.0-18.0) 08/26/25 16:40 POC Hgb 13.6 g/dl (14.0-18.0) L 08/26/25 16:48 Hct 39.9 % (42.0-52.0) L 08/26/25 16:40 POC Hct 40 % (42-52) L 08/26/25 16:48 MCV 93.9 fL (80.0-100.0) 08/26/25 16:40 MCH 33.2 pg (25.0-34.0) 08/26/25 16:40 MCHC 35.3 g/dL (32.0-36.0) 08/26/25 16:40 RDW Std Deviation 53.0 fL (36.4-46.3) H 08/26/25 16:40 RDW Coeff of Ricardo 15.2 % (11.5-14.5) H 08/26/25 16:40 Plt Count 133 K/uL (130-400) 08/26/25 16:40 MPV 10.9 fL (9.4-12.4) 08/26/25 16:40 Immature Gran % (Auto) 0.4 % 08/26/25 16:40 Neut % (Auto) 87.1 % 08/26/25 16:40 Lymph % (Auto) 5.1 % 08/26/25 16:40 [place] % (Auto) 7.1 % 08/26/25 16:40 Eos % (Auto) 0.1 % 08/26/25 16:40 Baso % (Auto) 0.2 % 08/26/25 16:40 Neut # (Auto) 10.76 K/uL (1.40-6.50) H 08/26/25 16:40 Lymph # (Auto) 0.63 K/uL (1.20-3.40) L 08/26/25 16:40 [place] # (Auto) 0.88 K/uL (0.11-0.59) H 08/26/25 16:40 Eos # (Auto) 0.01 K/uL (0.00-0.50) 08/26/25 16:40 Baso # (Auto) 0.02 K/uL (0.00-0.20) 08/26/25 16:40 Immature Gran # (Auto) 0.05 K/uL (0.01-0.20) 08/26/25 16:40 PT 12.2 Seconds (9.0-12.0) H 08/26/25 16:40 INR 1.2 (0.9-1.1) H 08/26/25 16:40 APTT 31 Seconds (21-31) 08/26/25 16:40 PTT Ratio 1.1 08/26/25 16:40 POC Sodium 133 mmol/L (135-144) L 08/26/25 16:48 Sodium 133 mmol/L (136-145) L 08/26/25 16:40 POC Potassium 4.1 mmol/L (3.3-5.0) 08/26/25 16:48 Potassium 4.2 mmol/L (3.5-5.1) 08/26/25 16:40 POC Chloride 99 mmol/L (101-112) L 08/26/25 16:48 Chloride 99 mmol/L (98-107) 08/26/25 16:40 Carbon Dioxide 22 mmol/L (21-32) 08/26/25 16:40 POC Total CO2 21 mmol/L (24-31) L 08/26/25 16:48 Anion Gap 12 (3-11) H 08/26/25 16:40 POC Anion Gap 18.0 mmol/L (16-25) 08/26/25 16:48 POC BUN 28 mg/dl (7-18) H 08/26/25 16:48 BUN 29 mg/dl (6-23) H 08/26/25 16:40 Creatinine 1.18 mg/dl (0.6-1.4) 08/26/25 16:40 POC Creatinine 1.2 mg/dl (0.6-1.3) 08/26/25 16:48 Est Cr Clr Drug Dosing 42.8 ml/min 08/26/25 16:40 eGFR 60.47 08/26/25 16:40 BUN/Creatinine Ratio 24.6 (10-20) H 08/26/25 16:40 Glucose 116 mg/dl (70-99(Fasting)) H 08/26/25 16:40 POC Glucose (other) 115 mg/dl (70-99) H 08/26/25 16:48 Lactate 1.4 mmol/L (0.4-2.0) 08/26/25 23:11 Calcium 9.6 mg/dl (8.6-10.3) 08/26/25 16:40 POC Ioniz Calcium Randa 1.13 mmol/l (1.12-1.32) 08/26/25 16:48 Total Bilirubin 2.2 mg/dl (0.2-1.0) H 08/26/25 16:40 AST 30 U/L (13-39) 08/26/25 16:40 ALT 18 U/L (7-52) 08/26/25 16:40 Alkaline Phosphatase 60 U/L (34-104) 08/26/25 16:40 Troponin I High Sens 14.1 pg/ml (0-20) 08/26/25 16:40 Total Protein 7.2 gm/dl (6.0-8.3) 08/26/25 16:40 Albumin 4.3 gm/dl (3.4-5.0) 08/26/25 16:40 Globulin 2.9 gm/dl (2.5-4.0) 08/26/25 16:40 Albumin/Globulin Ratio 1.5 (0.9-2) 08/26/25 16:40 Lipase 23 U/L (11-82) 08/26/25 16:40 Procalcitonin 0.28 ng/ml (0-0.5) 08/26/25 16:40 Urine Color Dark Yellow 08/26/25 Unknown Urine Appearance Clear (Clear) 08/26/25 Unknown Urine pH 6.0 (4.5-7.5) 08/26/25 Unknown Ur Specific [place] 1.027 (1.000-1.030) 08/26/25 Unknown Urine Protein 1+ (Negative) H 08/26/25 Unknown Urine Glucose (UA) Negative (Negative) 08/26/25 Unknown Urine Ketones 2+ (Negative) H 08/26/25 Unknown Urine Blood 1+ (Negative) H 08/26/25 Unknown Urine Nitrite Negative (Negative) 08/26/25 Unknown Urine Bilirubin 1+ (Negative) H 08/26/25 Unknown Urine Urobilinogen Negative (Negative) 08/26/25 Unknown Ur Leukocyte Esterase 1+ (Negative) H 08/26/25 Unknown Urine WBC (Auto) 21-50 /hpf (0-5) H 08/26/25 Unknown Urine RBC (Auto) 3-5 /hpf (0-2) H 08/26/25 Unknown U Hyaline Cast (Auto) 0-2 /lpf (0-2) 08/26/25 Unknown U Epithel Cells (Auto) 0-2 /hpf (0-2) 08/26/25 Unknown Urine Bacteria (Auto) None Seen (None Seen) 08/26/25 Unknown Urine Comment 08/26/25 Unknown Impressions Chest X-Ray 08/26/25 16:21 Chest radiograph, one view History: Trauma Comparison: 07/23/2023 Findings: Single AP view of the chest performed. No focal consolidation or pleural effusion. No pneumothorax. CABG changes. Left chest wall AICD. The cardiomediastinal silhouette is within normal limits. Normal pulmonary vascularity. No evidence for lymphadenopathy. No visualized bony or soft tissue abnormality. Impression: Normal chest radiograph Electronically signed by Anthony Carreon 08-26-2025 6:[address] 08/26/25 16:21 CT head without contrast History: Trauma Comparison: None Technique: Using multidetector thin collimation helical acquisition technique, axial, coronal and sagittal CT images from the skull base to the vertex were obtained without intravenous contrast. Dose reduction techniques were achieved by using automatic exposure control and/or adjustment of mA and/or kV according to patient size and/or use of iterative reconstruction technique. Findings: No intracranial hemorrhage, mass-effect, or midline shift. The ventricles are proportionate to the cerebral sulci. The arriaza to white matter differentiation of the cerebral hemispheres is preserved. The basal cisterns are patent. There is moderate cerebral atrophy. Moderate, patchy low-attenuation changes in the white matter, most suggestive of sequelae of chronic small vessel ischemic disease. 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 Heavy cerebral vascular calcification. The visualized paranasal sinuses are clear. Mastoid air cells are clear. Impression: No acute intracranial pathology. Electronically signed by Anthony Carreon 08-26-2025 6:12 PM Abdomen/Pelvis CT 08/26/25 16:54 EXAMINATION: CT of the abdomen and pelvis performed without contrast TECHNIQUE: Helical CT images from the lung bases through the symphysis pubis were obtained without contrast. Coronal and sagittal reformatted images were generated at a workstation for further assessment. Dose reduction techniques were achieved by using automatic exposure control and/or adjustment of mA and/or kV according to patient size and/or use of iterative reconstruction technique. COMPARISON: 09/11/2015 HISTORY: Abdominal pain FINDINGS: Lower chest: No consolidation. No pleural effusion or pneumothorax. Stable 8 mm nodule in the left lower lobe since September 11, 2015, favored benign. Liver: No suspicious liver lesions. Calcific annulus. Gallbladder: Small layering calcified gallstones. No evidence of acute cholecystitis. Spleen: Normal size. Calcified granulomas. Pancreas: No suspicious pancreatic lesions. The pancreatic duct is not dilated. Adrenal glands: No adrenal nodules. Kidneys: No hydronephrosis or obstructing renal stones. There is a few punctate nonobstructing stones at the inferior right kidney, as well as a tiny nonobstructing inferior left renal stone. Bladder / Pelvic organs: Enlarged prostate gland measuring 5.4 cm. The urinary bladder is mildly distended.. Bowel: No bowel obstruction. No abnormal bowel wall thickening. The appendix is unremarkable. Small sliding hiatal hernia. Sigmoid diverticulosis without diverticulitis. Lymph nodes: No retroperitoneal, mesenteric, or pelvic lymphadenopathy. Peritoneum / Retroperitoneum: No free fluid or air within the abdomen. Vessels: No infrarenal aortic aneurysm. Bones and soft tissues: No suspicious lesion in the bones. Fat-containing inguinal hernias bilaterally. IMPRESSION: No acute finding. No obstructing ureteral stone. Prostatomegaly. Cholelithiasis. Electronically signed by Anthony Carreon 08-26-2025 7:16 PM ECG Additional Comments: EKG with ventricular paced rhythm, no acute ischemic changes PG Care Time/CCT Total # of Minutes Spent Total Time Spent with Patient: Total time spent is greater than 50% in coordination of care (as documented) at patient's floor/unit and/or counseling patient: Coding Level of Care Code 63057 INT INP/OBS CARE 3/75MIN Diagnoses Falls R29.6 Prostatitis N41.9 Atrial fibrillation I48.91 BPH with obstruction/lower urinary tract symptoms N40.1; N13.8
[2025-08-26] MEDS: CIPROFLOXACIN / D5W 400 MG/200 ML BAG IV STA (19:47)
[2025-08-26] MEDS ORDERED: ACETAMINOPHEN 325 MG TAB PO PRN (21:39)
[2025-08-26] MEDS ORDERED: DOCUSATE SODIUM 100 MG CAP PO PRN (21:39)
[2025-08-26] MEDS ORDERED: ONDANSETRON INJ 2 MG/ML 2 ML VIAL IV PRN (21:39)
[2025-08-26] MEDS: LACTATED RINGER'S 1,000 ML IV SCH (22:11)
[2025-08-26] MEDS: METOPROLOL SUCC 50MG EXT REL TAB PO SCH (23:39)
[2025-08-26] MEDS: APIXABAN 5 MG TABLET PO SCH (23:39)
[2025-08-26] MEDS: LEVOTHYROXINE SODIUM 25 MCG TABLET PO SCH (23:39)
[2025-08-26] MEDS: PRAVASTATIN SOD 40 MG TAB PO SCH (23:39)
[2025-08-26] MEDS: TAMSULOSIN HCL 0.4 MG CAP PO SCH (23:39)
[2025-08-27] MEDS: ASPIRIN 81 MG ECTAB PO SCH (08:10)
[2025-08-27] MEDS: POLYETHYLENE (MIRALAX) 17 GM PACK PO SCH (08:17)
[2025-08-27 09:09] LABS: Hematocrit (blood only) 37.3 % (42.0-52.0); Hemoglobin 13.0 g/dl (14.0-18.0); Mean Corpuscular Hemoglobin 32.7 pg (25.0-34.0); Mean Corpuscular Volume 94.0 fL (80.0-100.0); Platelet Count 139 K/uL (130-400); RDW Standard Deviation 53.2 fL (36.4-46.3); Red Blood Count 3.97 M/uL (4.70-6.10); White Blood Count 9.03 K/ul (4.8-10.8)
[2025-08-27 09:30] LABS: Anion Gap 8.0 (3-11); Blood Urea Nitrogen 21.0 mg/dl (6-23); Calcium 8.6 mg/dl (8.6-10.3); Carbon Dioxide 25.0 mmol/L (21-32); Chloride 99.0 mmol/L (98-107); Creatinine Clr Calc Pharmacy 52.6 ml/min; Glucose 104.0 mg/dl (70-99(Fasting)); Potassium 3.8 mmol/L (3.5-5.1); Sodium 132.0 mmol/L (136-145)
[2025-08-27] MEDS: CIPROFLOXACIN / D5W 400 MG/200 ML BAG IV SCH (09:53)
--- NOTE | 2025-08-27 17:59 | Hospitalist Progress Note ---
Date of Service August 27, 2025 Assessment & Plan (1) Falls: (2) Prostatitis: (3) Atrial fibrillation: (4) BPH with obstruction/lower urinary tract symptoms: Plan 85yo male with history of HTN, HLD, AF on Eliquis anticoagulation presenting with increased frequency of falls at home. Patient also with 4-5 days of urinary symptoms - increased frequency, difficulty starting his urinary stream. #Increased frequency of falls - patient denies focal weakness, dizziness, syncope. No LOC, Head trauma or injuries. Possibly secondary to underlying infection -Observation to medical -Fall precautions -PT/OT evaluations #Prostatitis - patient reports urinary complaints. UA with blood, RBCs, WBCs and LE. No bacteria. CT with enlarged prostate. Known hx of BPH with LUTS. -Urine culture with prelim morganella morganii -PSA 15.895 (reviewed trends with <4 values since 2018) -Continue Cipro 400mg IV BID -Bladder scan with straight cath as needed -Flomax 0.4mg po qAM -established with [place] [facility], will need f/u on d/c #Atrial fibrillation with cardiac pacemaker -rate controlled with metoprolol 200mg po qPM -anticoagulated with Eliquis 5mg po BID #Hyperlipidemia - chronic, stable -Continue Pravastatin 80mg po qPM Ppx - Eliquis Code - Full Admission and Anticipated Discharge Date Admission Date: August 26, 2025 Supervising Physician Co-Signing Physician Notes Attending Attestation - Chart reviewed, care plan d/w EZIO Aldrich. I agree with the howe components of her documentation. Will need 4 weeks of Rx for suspected acute prostatitis. Jonathan Vega MD Subjective Patient states he has been having LUTS worsening over the past 4-5 days. It has progressed to the point where he has had episodes of urinary incontinence. +difficulty passing urine with hesitancy and increase frequency. Per nursing, he was incontinent of stool this am. Reports he did fall prior to arrival in the ED yesterday when he was carrying a box near his bed and leaned forward subsequently landing on his knees. He has no current complaints of pain. Denies pre-syncope or recent syncopal episodes. He currently denies fever, chills or anorexia. Review of Systems Review of Systems: All systems reviewed & are unremarkable except as noted in Subjective Physical Exam Physical Exam: GENERAL APPEARANCE: A&O. Sitting comfortably in chair. NAD. SKIN: Normal color without rashes or lesions. Normal turgor. HEENT: Head AT/NC. Buccal mucosa is moist and pink. NECK: No jugular venous distention. No thyroid enlargement. There is no lymphadenopathy. HEART: RRR without m/g/r LUNGS: Normal inspiratory effort. CTA without w/r/r ABDOMEN: No guarding or rigidity. Normoactive BS in all four quadrants. Abdomen soft and NT. MSK: No bony gross/deformities throughout. ROM intact. EXTREMITIES: No edema, No peripheral cyanosis. Neuro: CN 2-12 grossly intact. No focal neuro deficits PSYCHIATRIC: Normal affect. Eye contact is good. Speech is normal rate and content. Responses are appropriate. Results & Data Results & Data Vital Signs (Past 12 Hours) Vital Signs Temp Pulse Resp BP Pulse Ox O2 Del Method 08/27/25 15:35 36.7 C 61 14 120/54 L 97 Room Air 08/27/25 07:50 36.6 C 70 16 113/61 97 Room Air PG Care Time/CCT Total # of Minutes Spent Total Time Spent with Patient: Total time spent is greater than 50% in coordination of care (as documented) at patient's floor/unit and/or counseling patient: Coding Level of Care Code 97516 SUB INP/OBS CARE 2/35MIN Diagnoses Falls R29.6 Prostatitis N41.9 Atrial fibrillation I48.91 BPH with obstruction/lower urinary tract symptoms N40.1; N13.8
[2025-08-28 07:41] VITALS: BP 111/61; PULSE 62; RESP 18; TEMP 97.9; O2SAT 97
[2025-08-28 08:35] LABS: Hematocrit (blood only) 36.9 % (42.0-52.0); Hemoglobin 12.8 g/dl (14.0-18.0); Mean Corpuscular Hemoglobin 31.8 pg (25.0-34.0); Mean Corpuscular Volume 91.8 fL (80.0-100.0); Platelet Count 138 K/uL (130-400); RDW Standard Deviation 50.8 fL (36.4-46.3); Red Blood Count 4.02 M/uL (4.70-6.10); White Blood Count 8.03 K/ul (4.8-10.8)
[2025-08-28 08:50] LABS: Anion Gap 7.0 (3-11); Blood Urea Nitrogen 20.0 mg/dl (6-23); Calcium 8.8 mg/dl (8.6-10.3); Carbon Dioxide 25.0 mmol/L (21-32); Chloride 102.0 mmol/L (98-107); Creatinine Clr Calc Pharmacy 50.5 ml/min; Glucose 123.0 mg/dl (70-99(Fasting)); Potassium 3.8 mmol/L (3.5-5.1); Sodium 134.0 mmol/L (136-145)
--- NOTE | 2025-08-28 17:22 | Discharge Summary ---
Discharge Summary Date of Service August 28, 2025 Principal Dx & Hospital Course #1 = Principal Diagnosis (1) Falls: (2) Prostatitis: (3) Atrial fibrillation: (4) BPH with obstruction/lower urinary tract symptoms: Plan 85yo male with history of HTN, HLD, AF on Eliquis anticoagulation presenting with increased frequency of falls at home. Patient also with 4-5 days of urinary symptoms - increased frequency, difficulty starting his urinary stream. Patient treated for bacterial prostatitis with Cipro 400mg IV BID secondary to clinical presentation and worsening LUTS. He also was started on Flomax to augment urinary flow as his primary chief complaint was hesitancy, weak stream and inability to urinate at times. UC with morganella morganii and sensitivity with ciprofloxacin. He remained afebrile, oriented and normotensive during his hospital course stay. He had no falls and was without c/o pre-syncope/syncope. #Prostatitis - patient reports urinary complaints. UA with blood, RBCs, WBCs and LE. No bacteria. CT with enlarged prostate. Known hx of BPH with LUTS. -Urine culture with prelim morganella morganii -PSA 15.895 (reviewed trends with <4 values since 2018) -Cipro 400mg IV BID X 4 doses -Bladder scan with straight cath as needed -Flomax 0.4mg po qAM X30d on d/c, f/u with urology and PCP -Cipro 500mg po BID X 26 days for treatment of bacterial prostatitis -f/u with [facility] in 2-4 weeks, CM notified to secure appointment for patient #Increased frequency of falls - patient denies focal weakness, dizziness, syncope. No LOC, Head trauma or injuries. Possibly secondary to underlying infection -Observation to medical -Fall precautions -PT/OT evaluation with recommendation for home d/c #Atrial fibrillation with cardiac pacemaker -rate controlled with metoprolol 200mg po qPM -anticoagulated with Eliquis 5mg po BID #Hyperlipidemia - chronic, stable -Continue Pravastatin 80mg po qPM Ppx - Eliquis Code - Full dispo: D/C home with PCP follow up 1 week and [facility] 2-4 weeks Admission HPI Per Admitting Provider Spenser Barnhart is a pleasant 85yo male with history of CAD s/p CABG, HTN, HLP and Atrial Fibrillation on Eliquis anticoagulation presenting to [facility] ER with his and daughter with complaint of increased frequency of falls. Patient fell three times today and fell once two days ago as well. This is fairly new, prior to several days ago he has not fallen. Patient reports that he simply loses his balance. Today around 14:30 he was in his bedroom making the bed and stumbled causing him to fall. He has never hit his head or injured his neck. No LOC. No other injuries reported. Also with increased generalized weakness. He reports over the last 4-5 days he has had "blocked pipes" - with difficulty passing urine. Also with increased urinary frequency. No report of chest pain, palpitations, cough, SOB, nausea, vomiting or diarrhea. No additional complaints at this time. In the ER patient is afebrile, HD stable, NAD ER Course: Cipro Discharge Plan Discharge Items Patient Disposition: Home - Self-Care Reason For Visit: FREQUENT FALLS,POSSIBLE PROSTATITIS Discharge Diagnosis: Prostatitis Condition on Discharge: Fair Activity: Resume your previous activity Bathing: No limitations Driving/Machine Use: No limitations Weightbearing: Full weightbearing Non-emergency contact: Primary Care Provider Call non-emergency contact if: you have any medication questions, your symptoms worsen and you have a fever Follow-up/Referrals: Mauricio Lux MD [Primary Care Provider] - 09/03/25 10:30 am (Appointment will be with Lise Herrera) Uday James MD [Physician] - 09/11/25 9:00 am (Follow up within 2 weeks of discharge) Diet: Heart Healthy Addtl Attending Provider Instructions: Mr. Barnhart, You were admitted to the hospital for an infection in your prostate. You did receive antibiotics while in the hospital through an IV for 2 days and will need to continue this antibiotic for an additional 26 days to complete your course of treatment. You were also administered a medication called Flomax to help with your urinary flow. Please follow up with your family doctor within 1 week of discharge and we will be reaching out to [facility] urology to secure an appointment for you in the next 2-4 weeks for follow up. Please be aware that the antibiotic you are prescribed called Cipro does have a small risk side effect that can cause severe called tendon rupture. If at any time during the course of taking Cipro you experience sudden, sharp pain in the back of your ankles, shoulder, or hand notify your family doctor. Medications: Your medication list has been reviewed and reconciled upon discharge to ensure accuracy and continuity of care. An updated list of all your medications is included with your hospital discharge paperwork. Please review this list closely, and make note of any changes. We sent a new medication called Ciprofloxacin to your pharmacy. Take Ciprofloxacin 500mg two times a day for the next 26 days. Start this medication this evening as you received a dose of this medication this morning prior to discharge from the hospital. We also sent a medication called Flomax to your pharmacy. Take Flomax 0.4mg at bedtime nightly. You were provided with a thirty day supply and will need additional refills from your urologist or family doctor. Again, this medication will help the flow of your urine. Take your medications as instructed; do not skip a dose of your medicines. Make sure all of your doctors know every medicine you are taking (including tznl-tnv-okjmred medicines, vitamins, and supplements). Call your primary care provider before taking any new medicines (including over- the-counter medicines, vitamins, and supplements), because some of these may interact with your current medications, or may make your symptoms worse. Tell your primary care provider if you cannot afford your medications. Activity: You can do normal everyday activities as your body allows. Take rest breaks if you feel tired. Do not overexert. Stop activity if you have pain, shortness of breath or feel dizzy. Follow-up appointments: Make an appointment with your primary care physician within one week of discharge. A copy of this summary will be sent to them. Every time you see your primary care physician, or any other doctor, bring your medication list, and a list of questions. CONTACT YOUR PRIMARY CARE PROVIDER if you experience any of the following: Shortness of breath or difficulty breathing Fevers or chills Feeling tired with normal activity or experiencing dizziness or fainting Difficulty following your treatment plan, or difficulty taking medications CALL 911 OR GO TO THE EMERGENCY DEPARTMENT if you experience any of the following: Severe abdominal pain or nausea/vomiting Severe chest pain, or chest pain that radiates (moves) to your jaw or arm Sudden, severe shortness of breath or difficulty breathing Thank you for allowing us to participate in your care. Pending Studies at Discharge: No Stand-Alone Forms: My [facility] Startist, Smoking Cessation Medications and DC Order Prescriptions: New tamsulosin 0.4 mg Capsule 0.4 mg PO HS Qty: 30 0RF ciprofloxacin HCl [Cipro] 500 mg tablet 500 mg PO BID 26 Days Qty: 52 0RF Continued pravastatin 80 mg tablet 80 mg PO QPM Qty: 90 3RF metoprolol succinate 200 mg tablet extended release 24 hr 200 mg PO QPM Qty: 90 3RF apixaban 5 mg tablet 5 mg PO BID Qty: 180 3RF cholecalciferol (vitamin D3) 25 mcg (1,000 unit) capsule 25 mcg PO DAILY Patient Comments: 08/26- otc unable to verify aspirin 81 mg capsule 81 mg PO Q2D Patient Comments: 08/26- otc unable to verify polyethylene glycol 3350 [Miralax] 17 gram/dose powder 17 g PO DAILY Patient Comments: 08/26- otc unable to verify ondansetron HCl 4 mg tablet 4 mg PO Q6H PRN (Reason: nausea and vomiting) Qty: 30 0RF Patient Comments: levothyroxine 25 mcg tablet 25 mcg PO QPM Discharge Orders: Discharge Order (Routine); Ordered 08/28/25 Ordered By: Davida Gustafson/Other Patient Handouts: Bacterial Prostatitis, PSA Test, ED Prostatitis Admission Data Admit Date/Time: 08/26/25 19:48 Attending Provider: Jonathan Vega Admit Provider: Lise Camacho Primary Care Provider: Mauricio Lux Other Providers: Lise Camacho Other Interventions: Discharge Summary Assessment (RN) Last Done: 08/28/25 10:58 Hospital Stay Data Consultations 08/26/25 19:27 ED Decision to Admit Stat Diagnostic Imagining Performed 08/26/25 16:21 CT head/brain wo con Stat 08/26/25 16:54 CT abd pelvis wo con Stat Pending Results Patient Have Any Pending Studies at Discharge: No Discharge Instructions Given to Patient (Per Discharging Provider) Mr. Barnhart, You were admitted to the hospital for an infection in your prostate. You did receive antibiotics while in the hospital through an IV for 2 days and will need to continue this antibiotic for an additional 26 days to complete your course of treatment. You were also administered a medication called Flomax to help with your urinary flow. Please follow up with your family doctor within 1 week of discharge and we will be reaching out to [facility] urology to secure an appointment for you in the next 2-4 weeks for follow up. Please be aware that the antibiotic you are prescribed called Cipro does have a small risk side effect that can cause severe called tendon rupture. If at any time during the course of taking Cipro you experience sudden, sharp pain in the back of your ankles, shoulder, or hand notify your family doctor. Medications: Your medication list has been reviewed and reconciled upon discharge to ensure accuracy and continuity of care. An updated list of all your medications is inc luded with your hospital discharge paperwork. Please review this list closely, and make note of any changes. We sent a new medication called Ciprofloxacin to your pharmacy. Take Ciprofloxacin 500mg two times a day for the next 26 days. Start this medication this evening as you received a dose of this medication this morning prior to discharge from the hospital. We also sent a medication called Flomax to your pharmacy. Take Flomax 0.4mg at bedtime nightly. You were provided with a thirty day supply and will need additional refills from your urologist or family doctor. Again, this medication will help the flow of your urine. Take your medications as instructed; do not skip a dose of your medicines. Make sure all of your doctors know every medicine you are taking (including hyja-pbx-daubwzd medicines, vitamins, and supplements). Call your primary care provider before taking any new medicines (including over- the-counter medicines, vitamins, and supplements), because some of these may interact with your current medications, or may make your symptoms worse. Tell your primary care provider if you cannot afford your medications. Activity: You can do normal everyday activities as your body allows. Take rest breaks if you feel tired. Do not overexert. Stop activity if you have pain, shortness of breath or feel dizzy. Follow-up appointments: Make an appointment with your primary care physician within one week of discharge. A copy of this summary will be sent to them. Every time you see your primary care physician, or any other doctor, bring your medication list, and a list of questions. CONTACT YOUR PRIMARY CARE PROVIDER if you experience any of the following: Shortness of breath or difficulty breathing Fevers or chills Feeling tired with normal activity or experiencing dizziness or fainting Difficulty following your treatment plan, or difficulty taking medications CALL 911 OR GO TO THE EMERGENCY DEPARTMENT if you experience any of the following: Severe abdominal pain or nausea/vomiting Severe chest pain, or chest pain that radiates (moves) to your jaw or arm Sudden, severe shortness of breath or difficulty breathing Thank you for allowing us to participate in your care. Supervising Physician Co-Signing Physician Notes Attending Attestation - Chart reviewed, care plan d/w EZIO Aldrich. I agree with the howe components of her documentation. Will need 4 weeks of Rx for suspected acute prostatitis. Jonathan Vega MD Total Time Total Time Spent Total Time Spent (In Minutes): I spent a total of 50 minutes on the date of service in review of patient's [address], and previously obtained information in person and appropriate medical visit, discussion and education of plan, with patient and/or caregiver, placing orders for tests/referral/procedures as medically necessary and documentation of pertinent clinical information in patient's medical records for their visit today. Coding Level of Care Code 35068 INP/OBS DISCH >30 MIN Diagnoses Falls R29.6 Prostatitis N41.9 Atrial fibrillation I48.91 BPH with obstruction/lower urinary tract symptoms N40.1; N13.8
--- NOTE | 2025-08-30 13:10 | Electrocardiogram Report ---
Test Reason : Blood Pressure : */* mmHG Vent. Rate : 73 BPM Atrial Rate : 357 BPM P-R Int : * ms QRS Dur : 182 ms QT Int : 438 ms P-R-T Axes : * -66 96 degrees QTcB Int : 482 ms Ventricular-paced rhythm Underlying atrial fibrillation Abnormal ECG When compared with ECG of 23-Jul-2023 22:20, Vent. rate has decreased by 5 bpm Ventricular-paced rhythm is now Present Confirmed by Raghavendra Romero ([id number]) on 08/30/2025 1:10:23 PM Referred By: REFERRED SELF Confirmed By: Raghavendra Romero
== END 2025-08-28 11:20 | disposition home or self-care (01) ==
LOC: ED 16:04 → 3N 16:04 → SUATTDRO 19:48 → 3N 21:14